=== PATIENT | female | born 1940 | race Caucasian/White ===

== ENCOUNTER 2016-09-25 16:26 | Emergency (ER) | payer OTHER ==
[~2016-09-25] VITALS: Ht 170.2 cm; Wt 84.1 kg
[~2016-09-25 16:26] MED LIST: ADULT LOW DOSE81 M1 PO; ALBUTEROL SULF8.5 GM IH; ALBUTEROL2.5 MG/3 M IH; ALENDRONATE SOD70 MG PO; AVAPRO150 MG PO; CARBIDOPA/LEVO1 EACH PO; CLONAZEPAM0.5 M1 PO; CRANBERRY500 MG PO; DAILY VITAMIN1 EAC8 PO; DEPAKOTE125 MG PO; DEPAKOTE500 MG PO; FISH OIL CONC1 EACH PO; HALDOL1 MG PO; LEVAQUIN750 MG PO; LODOSYN25 MG PO; MIRALAX17 GM PO; MULTIVITAMIN1 EAC1 PO; NAMENDA10 MG PO; STOOL SOFT-STI1 EACH PO; ULTRAM50 MG PO; VENLAFAXINE HC150 MG PO; VITAMIN D31000 UNIT PO; VITAMIN D400 INTUNI PO; ZOCOR10 MG PO; [UNRECOGNIZED DRUG - OTHER]
[2016-09-25] MEDS ORDERED: CLINDAMYCIN HC300 MG PO (18:40)
[2016-09-25 19:00] VITALS: BP 149/96
== END 2016-09-25 19:06 | disposition home or self-care (01) ==
LOC: EME 16:26
DX: L72.3 Sebaceous cyst (principal); L03.211 Cellulitis of face; G30.9 Alzheimer's disease, unspecified; F02.80 Dementia in other diseases classified elsewhere, unspecified severity, without behavioral disturbance, psychotic disturbance, mood disturbance, and anxiety; G20 Parkinson's disease; Z79.82 Long term (current) use of aspirin
CPT/HCPCS: 99281; 99284

== ENCOUNTER 2017-10-31 15:51 | Inpatient (IN) | payer OTHER ==
[~2017-10-31] VITALS: Ht 160 cm; Wt 71.2 kg
[~2017-10-31 15:51] MED LIST changes: +CLINDAMYCIN HC300 MG PO; +DEPAKOTE SPRIN125 MG PO; -DEPAKOTE125 MG PO; +VENLAFAXINE HC150 M1 PO; -VENLAFAXINE HC150 MG PO
[2017-10-31 16:45] LABS: HEMATOCRIT 34.5 % (36.0-46.0); HEMOGLOBIN 11.2 G/DL (11.9-15.5); MCH 30.8 PG (29.0-34.0); MCHC 32.5 G/DL (30.0-36.0); MCV 94.8 FL (83-99); PLATELET COUNT 432 K/uL (156-360); RBC DIS.WIDTH-CV 13.7 % (11.8-14.6); RBC DIS.WIDTH-SD 47.5 % (39-53); RED BLOOD COUNT 3.64 M/uL (3.80-5.20); WHITE BLOOD COUNT 16.3 K/uL (4.1-10.2)
[2017-10-31 16:53] LABS: ALBUMIN 2.6 g/dL (3.2-4.8); CHLORIDE 102 mEq/L (99-109)
[2017-10-31 16:54] LABS: POTASSIUM 4.4 mEq/L (3.7-5.4); SODIUM 136 mEq/L (136-147)
[2017-10-31 16:56] LABS: GLUCOSE 97 mg/dL (70-99); TOTAL PROTEIN 5.7 g/dL (6.4-8.3)
[2017-10-31 16:58] LABS: TOTAL BILIRUBIN 0.4 mg/dL (0.0-1.0)
[2017-10-31 16:59] LABS: ALKALINE PHOSPHATASE 80 IU/L (3-129); CREATININE 0.7 mg/dL (0.6-1.3); GFR ESTIMATE (CALCULATED) > 59 mL/min/
[2017-10-31 17:01] LABS: AST (GOT) 15 IU/L (2-34); UREA NITROGEN (BUN) 24 mg/dL (9-23)
[2017-10-31 17:02] LABS: ALT (GPT) < 3 IU/L (3-49)
[2017-10-31 17:40] LABS: APPEARANCE CLOUDY ((CLEAR)); BILIRUBIN SMALL; BLOOD NEGATIVE; COLOR AMBER ((YELLOW)); GLUCOSE (STRIP) 50; KETONES 5; LEUKOCYTES TRACE; NITRITE NEGATIVE; PROTEIN (STRIP) 100; SPECIFIC GRAVITY 1.026 (1.000-1.030)
[2017-10-31 18:08] LABS: BACTERIA 3+ /HPF; EPITHELIAL CELLS RARE /HPF; MUCUS NONE SEEN /LPF; RED BLOOD CELLS NONE SEEN /HPF (0-5); UCUL ADDED? YES; WHITE BLOOD CELLS RARE /HPF (0-5)
[2017-10-31 18:09] LABS: AMORPHOUS URATES CRYSTALS 1+
[2017-10-31] MEDS ORDERED: ALBUTEROL2.5 MG/3 M IH (18:45)
[2017-10-31 22:45] VITALS: BP 120/58
[2017-11-01] VITALS (7 sets, daily range): BP systolic 99–170; BP diastolic 57–90
[2017-11-01 06:03] LABS: BASOPHIL (%) 0.4 % (0-1); BASOPHIL COUNT 0.1 K/uL (0-0.1); EOSINOPHIL (%) 1.2 % (0-5); EOSINOPHIL COUNT 0.2 K/uL (0-0.3); HEMATOCRIT 31.4 % (36.0-46.0); HEMOGLOBIN 9.8 G/DL (11.9-15.5); IMMATURE GRANULOCYTE (%) 2.5 % (0.0-0.7); LYMPHOCYTE (%) 12.4 % (15-42); LYMPHOCYTE COUNT 1.7 K/uL (1.0-2.8); MCH 29.8 PG (29.0-34.0); MCHC 31.2 G/DL (30.0-36.0); MCV 95.4 FL (83-99); MONOCYTE (%) 12.6 % (3-12); MONOCYTE COUNT 1.7 K/uL (0-0.8); NEUTROPHIL (%) 70.9 % (45-76); NEUTROPHIL COUNT 9.8 K/uL (1.8-6.4); PLATELET COUNT 386 K/uL (156-360); RBC DIS.WIDTH-CV 13.7 % (11.8-14.6); RBC DIS.WIDTH-SD 48.8 % (39-53); RED BLOOD COUNT 3.29 M/uL (3.80-5.20); WHITE BLOOD COUNT 13.7 K/uL (4.1-10.2)
[2017-11-01 06:27] LABS: CHLORIDE 104 MEQ/L (99-109); CREATININE 0.6 MG/DL (0.6-1.3); GFR ESTIMATE (CALCULATED) > 59 mL/min/; GLUCOSE 74 mg/dL (70-99); POTASSIUM 4.9 MEQ/L (3.7-5.4); PREALBUMIN 5.9 mg/dL (10-40); SODIUM 140 MEQ/L (136-147); UREA NITROGEN (BUN) 25 mg/dL (9-23)
[2017-11-02] VITALS (7 sets, daily range): BP systolic 116–169; BP diastolic 62–83
[2017-11-02 06:32] LABS: HEMATOCRIT 30.2 % (36.0-46.0); HEMOGLOBIN 9.7 G/DL (11.9-15.5); MCH 31.1 PG (29.0-34.0); MCHC 32.1 G/DL (30.0-36.0); MCV 96.8 FL (83-99); PLATELET COUNT 371 K/uL (156-360); RBC DIS.WIDTH-SD 49.9 % (39-53); RED BLOOD COUNT 3.12 M/uL (3.80-5.20); WHITE BLOOD COUNT 10.2 K/uL (4.1-10.2)
[2017-11-02 07:03] LABS: CHLORIDE 104 MEQ/L (99-109); CREATININE 0.6 MG/DL (0.6-1.3); GFR ESTIMATE (CALCULATED) > 59 mL/min/; GLUCOSE 77 mg/dL (70-99); POTASSIUM 4.4 MEQ/L (3.7-5.4); SODIUM 139 MEQ/L (136-147); UREA NITROGEN (BUN) 28 mg/dL (9-23)
[2017-11-03 04:02] VITALS: BP 161/74
[2017-11-03 06:38] VITALS: BP 167/81
[2017-11-03 07:13] LABS: HEMATOCRIT 29.6 % (36.0-46.0); HEMOGLOBIN 9.2 G/DL (11.9-15.5); MCHC 31.1 G/DL (30.0-36.0); MCV 96.4 FL (83-99); PLATELET COUNT 366 K/uL (156-360); RBC DIS.WIDTH-CV 14.1 % (11.8-14.6); RBC DIS.WIDTH-SD 49.6 % (39-53); RED BLOOD COUNT 3.07 M/uL (3.80-5.20)
[2017-11-03 07:35] LABS: CHLORIDE 106 MEQ/L (99-109); CREATININE 0.6 MG/DL (0.6-1.3); GFR ESTIMATE (CALCULATED) > 59 mL/min/; GLUCOSE 87 mg/dL (70-99); POTASSIUM 4.3 MEQ/L (3.7-5.4); SODIUM 139 MEQ/L (136-147); UREA NITROGEN (BUN) 28 mg/dL (9-23)
[2017-11-03 11:05] VITALS: BP 136/95
[2017-11-03 14:37] VITALS: BP 131/74
[2017-11-03 22:47] VITALS: BP 135/79
[2017-11-04 06:43] VITALS: BP 175/87
[2017-11-04 15:38] VITALS: BP 133/80
[2017-11-05 00:32] VITALS: BP 152/71
[2017-11-05 07:20] VITALS: BP 120/58
[2017-11-05] MEDS ORDERED: NATURAL BALANCE15 M1 BOTH EYES (11:22)
[2017-11-05] MEDS ORDERED: ATIVAN0.5 MG PO (11:22)
[2017-11-05] MEDS ORDERED: MORPHINE CON20 MG/M1 PO (11:22)
[2017-11-05] MEDS ORDERED: HYOSCYAMINE0.125 MG SL (11:22)
[2017-11-05] MEDS ORDERED: CIPRO500 MG PO (11:26)
[2017-11-05 15:06] VITALS: BP 104/68
[2017-11-05 23:52] VITALS: BP 136/79
[2017-11-06 07:22] VITALS: BP 133/79
[2017-11-06 15:35] VITALS: BP 120/78
[2017-11-06 23:15] VITALS: BP 133/61
[2017-11-07 07:38] VITALS: BP 134/64
== END 2017-11-07 11:42 | disposition hospice, home (50) | DRG 71 ==
LOC: EME 15:51 → EDOF 20:55 → ENRESERV 20:57 → 5EAST 21:17 → EDOF 21:17 → ENRESERV 21:18 → 5EAST 22:39 → ENPENDDIS 11-05 → 5EAST 11-07 11:42
PROVIDERS: Emergency Medicine; Hospitalist; Internal Medicine
DX: G93.40 Encephalopathy, unspecified (principal); N39.0 Urinary tract infection, site not specified; G30.9 Alzheimer's disease, unspecified; G20 Parkinson's disease; I10 Essential (primary) hypertension; R13.10 Dysphagia, unspecified; F02.80 Dementia in other diseases classified elsewhere, unspecified severity, without behavioral disturbance, psychotic disturbance, mood disturbance, and anxiety; E86.0 Dehydration; M16.11 Unilateral primary osteoarthritis, right hip; M85.80 Other specified disorders of bone density and structure, unspecified site; Z51.5 Encounter for palliative care; Z99.3 Dependence on wheelchair; Z90.710 Acquired absence of both cervix and uterus; Z82.3 Family history of stroke
CPT/HCPCS: 70450; 71045; 71046; 73501; 73552; 73560; 73590; 73630; 80048; 80053; 81003; 83605; 84134; 85025; 85027; 87040; 87086; 92526 GN; 92610 GN; 93970; 94799; 99202; 99281; 99285; J0696; J1650; J1885; J7030